=== PATIENT | female | born 1980 | race Caucasian/White ===

== ENCOUNTER → 2023-02-10 | Outpatient (CLI) | payer BC ==
--- NOTE | 2023-02-15 12:08 | MM ---
Reason for Exam: Screening (asymptomatic). Baseline mammogram. Patient History: Menarche at age 11. First Full-Term at age 26. Premenopausal. Last menstrual period: 01/11/2023 Risk Values: Sapna 5 year model risk: 0.8%. NCI Lifetime model risk: 10.8%. Prior Study Comparison: Patient's first Mammogram. Tissue Density: The breast tissue is extremely dense which could obscure a lesion on mammography. Findings: Analyzed By CAD. Left breast focal asymmetry possibly no fibroglandular tissue. Right breast: There is no suspicious group of microcalcifications or new suspicious mass. Overall Assessment: Incomplete: need additional imaging evaluation, BI-RAD 0 Management: Diagnostic Breast Ultrasound of the left breast. Ultrasound Left Breast Retroareolar Slightly Lateral Region To Exclude Underlying Mass. [facility] will attempt to contact patient to return for supplemental views and ultrasound if indicated. Patient should continue monthly self-breast exams. A clinical breast exam by your physician is recommended on an annual basis. This exam should not preclude additional follow-up of suspicious palpable abnormalities. Note on Sapna scores and lifetime risk: 1. A Sapna score greater than 3% is considered moderate risk. If this is the case, consider specialist referral to assess eligibility for a risk reducing agent. 2. If overall lifetime risk for the development of breast cancer is 20% or higher, the patient may qualify for future screening with alternating mammogram and breast MRI. Electronically signed and approved by: Filemon Hayden DO
== END | disposition home or self-care (01) ==
LOC: RADMAMWWP 07:55
PROVIDERS: ATTEND Obstetrics & Gynecology
DX: Z12.31 Encounter for screening mammogram for malignant neoplasm of breast (principal)
CPT/HCPCS: 77063; 77067

== ENCOUNTER → 2023-02-21 | Outpatient (CLI) | payer BC ==
--- NOTE | 2023-02-21 13:30 | USB ---
Reason for Exam: Additional evaluation requested from abnormal screening. Patient History: Menarche at age 11. First Full-Term at age 26. Premenopausal. Risk Values: Sapna 5 year model risk: 0.8%. NCI Lifetime model risk: 10.8%. Technique: Method: Targeted. Prior Study Comparison: 02/10/2023 Bilateral MG 3D screening mammo w/cad, [facility]. Findings: The lateral section of the breast of the left breast, the axilla of the left breast and the retroareolar of the left breast were scanned. No solid or cystic masses are identified.. No correlation with the mammographic findings. Overall Assessment: Negative, BI-RAD 1 Management: Screening Mammogram of both breasts in 1 year. A clinical breast exam by your physician is recommended on an annual basis and results should be correlated with mammographic findings. This exam should not preclude additional follow-up of suspicious palpable abnormalities. Results were given to the patient verbally at the time of exam. Electronically signed and approved by: Geo Song D.O. Radiologis
== END | disposition home or self-care (01) ==
LOC: RADUSWWP 12:58
PROVIDERS: ATTEND Obstetrics & Gynecology
DX: R92.8 Other abnormal and inconclusive findings on diagnostic imaging of breast (principal)